=== PATIENT | male | born 1950 | race Caucasian/White ===

== ENCOUNTER → 2017-04-28 | Day surgery (SDC) | payer OTHER ==
[2017-04-27 12:38] VITALS: BMI 47.4
[~2017-04-28] MED LIST: ALBUTEROL SO4 18 GM HFA INHALER IH ONE; LIDOCAINE HCL/PF 2% SDV 5ML VIAL ONE; PROPOFOL 20 ML ONE
[2017-04-28 09:11] VITALS: TEMP 97.7
[2017-04-28 10:28] VITALS: PULSE 73
[2017-04-28 11:43] VITALS: BP 135/78
--- NOTE | 2017-05-01 16:37 | PATH ---
Surgical Pathology Report Patient Name: TEJA MITCHELL [facility]. Rec. #: [id number] /Age/Gender: 1950 (Age: 67) / M Account: [id number] Location: U-ENDOSCOPY Taken: 04/28/2017 Received: 04/28/2017 Reported: 05/01/2017 Physicians: Kashmir Sharp M.D. Specimen(s) Received BX RECTAL POLYP Clinical History Rectal bleeding Gastritis (atrophic), GERD, diverticulosis, polyp Final Diagnosis RECTUM, POLYP, BIOPSY: COLONIC MUCOSA WITH SUPERFICIAL HYPERPLASTIC FEATURES. Electronically Signed Kathleen Florez M.D. Gross Description Received in formalin, labeled "polyp rectum" is a rivera, irregular portion of soft tissue measuring 0.2 cm. in greatest dimension. The specimen is submitted in toto in one cassette. /04/28/201704/28/2017
== END | disposition home or self-care (01) ==
LOC: JASU-ENDO 08:10
PROVIDERS: ATTEND Internal Medicine Gastroenterology
PROC: 0DB38ZX Excision of Lower Esophagus, Via Natural or Artificial Opening Endoscopic, Diagnostic (ICD-10-PCS; 2017-04-28)
PROC: 0DBP8ZX Excision of Rectum, Via Natural or Artificial Opening Endoscopic, Diagnostic (ICD-10-PCS; principal; 2017-04-28 09:00)
DX: Z12.11 Encounter for screening for malignant neoplasm of colon (principal); R19.5 Other fecal abnormalities; K62.1 Rectal polyp; K64.8 Other hemorrhoids; K57.30 Diverticulosis of large intestine without perforation or abscess without bleeding; K21.0 Gastro-esophageal reflux disease with esophagitis
CPT/HCPCS: 88305-TC

== ENCOUNTER 2017-08-22 08:39 | Inpatient (IN) | payer OTHER ==
[2017-08-01 15:37] VITALS: BMI 45.6
--- NOTE | 2017-08-21 11:25 | HP ---
Satellite [facility] - Chief Complaint Chief Complaint: left knee pain - Past Medical History Allergies/Adverse Reactions: Allergies Allergy/AdvReac Type Severity Reaction Status Date / Time acetaminophen AdvReac jittery Verified 08/01/17 15:54 WOOD MOLD Allergy ITCHING, Uncoded 08/01/17 15:12 BLISTERING - Current Medications Current Medications: Home Medications Medication Instructions Recorded Albuterol Sulfate [Proair Hfa -] 1 - 2 inh PO QID PRN 08/20/12 Lisinopril [Prinivil] 5 mg PO DAILY 08/20/12 Escitalopram Oxalate [Lexapro -] 20 mg PO HS 08/18/13 Rosuvastatin Calcium [Crestor] 20 mg PO HS 08/17/15 Warfarin Na [Coumadin -] 5 mg PO Q2D 08/17/15 Warfarin Na [Coumadin -] 7.5 mg PO Q2D 08/17/15 Aspirin [ASA -] 81 mg PO DAILY 04/27/17 Clonazepam [Klonopin] 1 mg PO PRN 04/27/17 Metoprolol Tartrate 50 mg PO BID 08/01/17 Omeprazole 20 mg PO DAILY 08/01/17 Satellite Physical Exam - Physical Examination General Appearance: Well Nourished, Well Developed, Alert & Oriented x3 ENT: Clear Lung: Normal air movement Heart: Regular rate & rhythm Extremities: Other (left knee - + swelling, + ttp, decr rom, nvi xrays show grade 4 tricompartmental djd) Neurological: Intact, Alert, Oriented Satellite Impression/Plan - Impression/Plan Impression: left knee djd Operative Procedure: left basia tkr Date to be Performed: 08/22/17
[2017-08-22] MEDS ORDERED: CELECOXIB 200 MG CAPSULE PO ONE (09:08)
[2017-08-22] MEDS ORDERED: TRANEXAMIC ACID 1000 MG/10 ML VIAL IVPUSH ONE (09:08)
[2017-08-22] MEDS ORDERED: CEFAZOLIN 2 GM in DEXTROSE 5%-WATER - 50 ML IVPB ONE (09:08)
[2017-08-22] MEDS ORDERED: GABAPENTIN 300 MG CAPSULE (FP) PO ONE (09:08)
[2017-08-22] MEDS ORDERED: oxyCODONE HCL 10 MG SUSTAINED ACTING TABLET PO ONE (09:08)
[2017-08-22] MEDS ORDERED: VANCOMYCIN 1,000 MG VIAL (RESTRICTED TO ID ONLY) ONE (10:49)
[2017-08-22] MEDS ORDERED: ceFAZolin SODIUM 1 GM VIAL ONE ×2 (10:49→11:22)
[2017-08-22 10:51] LABS: INR 1.21 (0.82-1.09); PROTHROMBIN TIME (PATIENT) 13.7 SEC (9.98-11.88)
[2017-08-22] MEDS ORDERED: ROPIVACAINE HCL 0.5% 30ML VIAL ONE (11:09)
[2017-08-22] MEDS ORDERED: MIDAZOLAM HCL 2 MG/2 ML SINGLE DOSE VIAL ONE ×2 (11:09→11:21)
[2017-08-22] MEDS ORDERED: DEXAMETHASONE SOD PHOSPHATE/PF 10 MG/ML SDV ONE (11:09)
[2017-08-22] MEDS ORDERED: BUPIVACAINE LIPOSOME/PF (EXPAREL) 266 MG/20 ML VIAL ONE (11:09)
[2017-08-22] MEDS ORDERED: PROPOFOL 20 ML ONE ×2 (11:21→12:34)
[2017-08-22] MEDS ORDERED: ROCURONIUM BROMIDE 50 MG/5 ML VIAL ONE ×2 (11:21→13:05)
[2017-08-22] MEDS ORDERED: fentaNYL CITRATE 250 MCG/5 ML VIAL ONE (11:21)
[2017-08-22] MEDS ORDERED: LIDOCAINE HCL 2% JELLY (5 ML/TUBE) ONE (11:22)
[2017-08-22] MEDS ORDERED: DEXAMETHASONE SOD PHOSPHATE 4 MG/1 ML VIAL ONE (11:22)
[2017-08-22] MEDS ORDERED: ONDANSETRON 4 MG/2 ML VIAL ONE (11:22)
[2017-08-22] MEDS ORDERED: NEOSTIGMINE METHYLSULFATE 0.5 MG/ML - 10 ML MDV ONE (13:13)
[2017-08-22] MEDS ORDERED: GLYCOPYRROLATE 0.2 MG/1 ML VIAL ONE (13:13)
[2017-08-22] MEDS ORDERED: VANCOMYCIN 1,000 MG VIAL (RESTRICTED TO ID ONLY) IVPB ONE (13:26)
[2017-08-22] MEDS ORDERED: ALBUTEROL SO4 18 GM HFA INHALER IH PRN (14:02)
[2017-08-22] MEDS ORDERED: MAG HYDROX/AL HYDROX/SIMETH 30 ML UNIT-DOSE CUP PO PRN (14:04)
[2017-08-22] MEDS ORDERED: MAGNESIUM HYDROX 2400MG/30ML ORAL SUSPENSION 30 ML CUP PO PRN (14:04)
[2017-08-22] MEDS ORDERED: HYDROmorphone HCL/PF 1 MG/ML VIAL (FOR PYXIS CHARGING ONLY) ONE (14:10)
[2017-08-22] MEDS ORDERED: LACTATED RINGERS SOLUTION 1,000 ML IV SCH (14:15)
[2017-08-22] MEDS ORDERED: PATIENT'S OWN MEDICATION (NON-FORMULARY) (Clonazepam [Klonopin] 1 MG) PO SCH (14:15)
[2017-08-22] MEDS ORDERED: ONDANSETRON 4 MG/2 ML VIAL IVPUSH PRN (14:42)
[2017-08-22] MEDS ORDERED: oxyCODONE HCL 5 MG TABLET PO PRN (14:42)
[2017-08-22] MEDS ORDERED: ACETAMINOPHEN 325 MG TABLET (FP) PO SCH (14:45)
[2017-08-22] MEDS ORDERED: oxyCODONE HCL 5 MG TABLET PO ONE (15:01)
[2017-08-22] MEDS ORDERED: ONDANSETRON 4 MG/2 ML VIAL IVPUSH ONE (15:09)
[2017-08-22] MEDS: oxyCODONE HCL 5 MG TABLET PO PRN ×2 (16:56→20:30)
[2017-08-22] MEDS: CEFAZOLIN 2 GM/D5W 2 GM/50 ML ML IVPB SCH (20:29)
[2017-08-22] MEDS: oxyCODONE HCL 10 MG SUSTAINED ACTING TABLET PO SCH (21:24)
[2017-08-22] MEDS: ESCITALOPRAM OXALATE 20 MG TABLET (FP) PO SCH (21:24)
[2017-08-22] MEDS: METOPROLOL TARTRATE 50 MG TABLET (FP) PO SCH (21:24)
[2017-08-22] MEDS: GABAPENTIN 300 MG CAPSULE (FP) PO SCH (21:24)
[2017-08-22] MEDS: ROSUVASTATIN CA 20 MG TABLET (FP) PO SCH (21:24)
[2017-08-22] MEDS: SENNOSIDES/DOCUSATE COMBO (SENNA PLUS) TABLET (UD) PO SCH (21:25)
[2017-08-22] MEDS ORDERED: KETOROLAC TROMETHAMINE 30 MG/1 ML VIAL IVPUSH ONE (23:15)
[2017-08-23] MEDS: oxyCODONE HCL 5 MG TABLET PO PRN ×4 (02:56→13:56)
[2017-08-23] MEDS: CEFAZOLIN 2 GM/D5W 2 GM/50 ML ML IVPB SCH (04:35)
[2017-08-23 08:51] LABS: HEMATOCRIT 24.9 % (35.4-49); HEMOGLOBIN 8.1 GM/dl (11.7-16.9); MCH 25.5 pg (25.7-33.7); MCHC 32.5 g/dl (32.0-35.9); MEAN CELL VOLUME 78.4 fl (80-96); MEAN PLT VOLUME 8.8 fl (7.5-11.1); PLATELET COUNT 367 K/MM3 (134-434); RBC 3.17 M/mm3 (4.00-5.60); RDW 15.9 % (11.9-15.9); WHITE BLOOD COUNT 12.5 K/mm3 (4.0-10.8)
--- NOTE | 2017-08-23 09:40 | PN ---
Progress Note (short form) - Note Progress Note: 67M POD1 s/p L TKR under spinal anesthetic with peripheral nerve blocks for post operative pain relief. Pt states that pain is well controlled and reports no anesthetic complications. AVSS. Sensory and motor function intact in bilateral lower extremities. Continue current regimen.
[2017-08-23] MEDS ORDERED: PT OWN MED DRAWER 7, Y5N ONE (09:47)
[2017-08-23] MEDS: ASPIRIN 81 MG CHEWABLE TABLETS PO SCH (09:51)
[2017-08-23] MEDS: oxyCODONE HCL 10 MG SUSTAINED ACTING TABLET PO SCH ×2 (09:51→21:28)
[2017-08-23] MEDS: METOPROLOL TARTRATE 50 MG TABLET (FP) PO SCH ×2 (09:58→21:29)
[2017-08-23] MEDS: GABAPENTIN 300 MG CAPSULE (FP) PO SCH ×2 (09:58→21:29)
[2017-08-23] MEDS: PANTOPRAZOLE 20 MG TABLET (FP) PO SCH (09:59)
[2017-08-23] MEDS: SENNOSIDES/DOCUSATE COMBO (SENNA PLUS) TABLET (UD) PO SCH ×2 (09:59→21:29)
[2017-08-23] MEDS: LISINOPRIL 5 MG TABLET (FP) PO SCH (09:59)
[2017-08-23] MEDS: MULTIVITAMINS (DAILY MVI) TABLET (FP) PO SCH (10:00)
[2017-08-23] MEDS ORDERED: PATIENT'S OWN MEDICATION (NON-FORMULARY) (Omeprazole [Omeprazole] 20 MG) PO SCH (10:00)
[2017-08-23] MEDS: ENOXAPARIN NA (PORCINE) 120 MG/0.8 ML DISP.SYRIN SQ SCH ×2 (10:00→21:30)
[2017-08-23] MEDS ORDERED: KETOROLAC TROMETHAMINE 30 MG/1 ML VIAL IM PRN (21:06)
[2017-08-23] MEDS: ROSUVASTATIN CA 20 MG TABLET (FP) PO SCH (21:28)
[2017-08-23] MEDS: ESCITALOPRAM OXALATE 20 MG TABLET (FP) PO SCH (21:29)
[2017-08-24] MEDS: oxyCODONE HCL 5 MG TABLET PO PRN ×3 (06:33→16:35)
[2017-08-24 08:00] LABS: HEMATOCRIT 24.8 % (35.4-49); HEMOGLOBIN 7.9 GM/dl (11.7-16.9); MCH 25.1 pg (25.7-33.7); MCHC 31.9 g/dl (32.0-35.9); MEAN CELL VOLUME 78.9 fl (80-96); MEAN PLT VOLUME 8.4 fl (7.5-11.1); PLATELET COUNT 342 K/MM3 (134-434); RBC 3.15 M/mm3 (4.00-5.60); RDW 16.2 % (11.9-15.9); WHITE BLOOD COUNT 12.5 K/mm3 (4.0-10.8)
--- NOTE | 2017-08-24 08:28 | PN ---
Progress Note (short form) - Note Progress Note: Ortho Pt seen and examined s/p left basia tkr pod #2 Selected Entries 08/24/17 04:00 Temperature 98.3 F Pulse Rate 75 Respiratory 20 Rate Blood Pressure 127/59 Laboratory Tests 08/23/17 07:50 WBC 12.5 H D Hgb 8.1 L D Hct 24.9 L D Plt Count 367 D dressing c/d/i, calf soft, nt rom 0-30, nvi a/p monitor h/h PT dvt ppx pain control d/c home tomorrow if stable
[2017-08-24] MEDS ORDERED: PT OWN MED DRAWER 7, Y5N ONE ×2 (10:48→21:24)
[2017-08-24] MEDS: ASPIRIN 81 MG CHEWABLE TABLETS PO SCH (10:49)
[2017-08-24] MEDS: METOPROLOL TARTRATE 50 MG TABLET (FP) PO SCH ×2 (10:49→21:39)
[2017-08-24] MEDS: GABAPENTIN 300 MG CAPSULE (FP) PO SCH ×2 (10:50→21:40)
[2017-08-24] MEDS: SENNOSIDES/DOCUSATE COMBO (SENNA PLUS) TABLET (UD) PO SCH ×2 (10:50→21:38)
[2017-08-24] MEDS: oxyCODONE HCL 10 MG SUSTAINED ACTING TABLET PO SCH ×2 (10:50→21:38)
[2017-08-24] MEDS: LISINOPRIL 5 MG TABLET (FP) PO SCH (10:50)
[2017-08-24] MEDS: MULTIVITAMINS (DAILY MVI) TABLET (FP) PO SCH (10:50)
[2017-08-24] MEDS: ENOXAPARIN NA (PORCINE) 120 MG/0.8 ML DISP.SYRIN SQ SCH ×2 (10:51→21:40)
[2017-08-24] MEDS: PANTOPRAZOLE 20 MG TABLET (FP) PO SCH (10:52)
--- NOTE | 2017-08-24 15:51 | OP ---
DATE OF OPERATION: 08/22/2017 PREOPERATIVE DIAGNOSIS: Degenerative joint disease, left knee. POSTOPERATIVE DIAGNOSIS: Degenerative joint disease, left knee. PROCEDURE: Left total knee replacement with robotic-assisted navigation (MAKOplasty). SURGICAL ATTENDING: Etienne Jeffers MD SPORTS MEDICINE TRAINER: MARLON Olmstead ANESTHESIA: Regional and spinal. CLOSURE: A Triathlon knee system with a 4 femur, a 5 tibia, a 9 polyethylene TS implant, and a 35 patella, 1 Corkscrew anchor for patellar tendon, 0 Vicryl for fascia, 2-0 for subcutaneous, 3-0 Monocryl subcuticular with skin glue for skin, and 4-0 undyed Vicryl for pin sites. ESTIMATED BLOOD LOSS: Approximately 150 mL. COMPLICATIONS: None. CONDITION: To recovery room in stable condition. DESCRIPTION OF OPERATIVE PROCEDURE: Patient was taken to the operating room on August 22, 2017. Spinal and regional anesthesia were administered by the anesthesiologist. IV Kefzol and TXA were administered prophylactically prior to the case. The left lower extremity was prepped and draped in the usual sterile fashion. We utilized his previous incision from his IM skip of his tibia to do the total knee replacement. He had a curved incision from mid-patella on the medial side, angling towards the tibial tubercle. We used that incision and extended it proximally and more laterally into the midline for this procedure. Flaps were made medially and laterally to perform the procedure. Medial parapatellar arthrotomy was then made. The patella was flexed, and the knee was flexed up. Some periosteal dissection was done on the anterior, medial, proximal tibia until the knee was able to be brought forward. During the dissection, part of the patella tendon was avulsing from the tibial tubercle. We held it in place with a tack during the procedure. The meniscal remnants, the ACL, and PCL were excised. Two pins were placed in the proximal aspect of the incision anterior to posterior, through the anterior cortex, and engaging but not through the posterior cortex. Two were placed through small stab incisions a handbreadth below the tibial tubercle, again gaining one cortex and not the second. We had to go around the skip as the patient had a skip in his tibia already. To these pins were attached the navigation arrays. The knee was then registered with the navigation device. Excellent registration was obtained and was confirmed by "popping the bubbles." Osteophytes were then removed from around the knee. The knee was then tested in varus/valgus stress in both extension and 90 degrees of flexion to obtain equal balancing. The virtual position of the components was optimized to optimize the balancing of the knee. The robot was then brought into the field, and the cuts were made on both the femur and the tibia as to the specifications. Trial reduction with a 4 femur, a 5 tibia, a 9 polyethylene achieved full extension and full flexion with equal balancing and tension to varus/valgus stress throughout. This was confirmed by the navigation device as well. The patella was then calibrated for thickness and then osteotomized down to the appropriate level. A trial 35 patella button was applied. The knee went through a range of motion, full extension, full flexion with excellent tracking of the patella and excellent stability throughout. The trial components were removed, the keel was punched and drilled and was not in the way of the tibial skip that was previously placed so that was left in situ. The real components were then cemented in using modern generation cement techniques and the antibiotic cement and pressurization. After the cement was hardened, the knee was thoroughly inspected to remove all excess cement. Trial number 9 TS implant was then used and clipped into place. Range of motion and stability were as described earlier. The knee was thoroughly irrigated with antibiotic . Vancomycin powder was then placed into the knee joint. Medial parapatellar arthrotomy was then closed using number 1 Vicryl suture. A 5.5 Corkscrew anchor with FiberWire was used to augment the patella tendon insertion into the tibial tubercle as part of it was avulsed. The main body, though, was still in situ but the Corkscrew was able to fixate the remainder. The knee was again taken through a range of motion, found to go full extension, full flexion with excellent tracking of the patella and no undue tension on the repair. The subcutaneous was closed in layers with 0 and 2-0 Vicryl and 3-0 Monocryl subcuticular, skin glue for the skin, 4-0 undyed Vicryl for pin sites. A sterile Aquacel dressing followed by a Feldman dressing was applied. The patient was awakened from anesthesia and transferred to recovery room in stable condition. No complications. The estimated blood loss negligible. Tourniquet was used in this case at 300 mmHg. Ferdinand CESAR/[id number]
[2017-08-24] MEDS: ROSUVASTATIN CA 20 MG TABLET (FP) PO SCH (21:39)
[2017-08-24] MEDS: ESCITALOPRAM OXALATE 20 MG TABLET (FP) PO SCH (21:40)
[2017-08-25] MEDS: oxyCODONE HCL 5 MG TABLET PO PRN ×3 (03:42→14:32)
--- NOTE | 2017-08-25 07:52 | PN ---
Progress Note (short form) - Note Progress Note: Ortho Pt seen and examined s/p left basia tkr pod #3 Selected Entries 08/25/17 06:00 Temperature 98.5 F Pulse Rate 57 L Respiratory 18 Rate Blood Pressure 113/60 Laboratory Tests 08/24/17 07:08 WBC 12.5 H Hgb 7.9 L Hct 24.8 L Plt Count 342 dressing c/d/i, calf soft, nt rom 0-30, nvi a/p monitor h/h PT dvt ppx pain control d/c home today f/u in 1 week
--- NOTE | 2017-08-25 09:44 | PN ---
Progress Note, Physician History of Present Illness: 67 yo h/o s/p bioAVR, CAD, diastolic dysfunction, PAF post cryoMaze on coumadin per INR, HTH/HCVD, chol, OSAS seen by Dr. Jim 07/24/2017 for pre- op CV evaluation. s/p left basia tkr pod #3 without sequelae. - Current Medication List Current Medications: Active Medications Al Hydroxide/Mg Hydroxide (Mylanta Oral Suspension -) 30 ml PO Q4H PRN PRN Reason: DYSPEPSIA Albuterol Sulfate (Ventolin Hfa Inhaler -) 1 - 2 puff IH QID PRN PRN Reason: SHORT OF BREATH/WHEEZING Aspirin (Asa -) 81 mg PO DAILY [facility] Last Admin: 08/24/17 10:49 Dose: 81 mg Enoxaparin Sodium (Lovenox -) 120 mg SQ BID [facility] Last Admin: 08/24/17 21:40 Dose: 120 mg Escitalopram Oxalate (Lexapro -) 20 mg PO HS [facility] Last Admin: 08/24/17 21:40 Dose: 20 mg Gabapentin (Neurontin -) 300 mg PO BID [facility] Last Admin: 08/24/17 21:40 Dose: 300 mg Ketorolac Tromethamine (Toradol Injection -) 30 mg IM Q6H PRN PRN Reason: PAIN LEVEL 4 - 6 Stop: 08/28/17 21:05 Last Admin: 08/23/17 21:20 Dose: 30 mg Lisinopril (Prinivil) 5 mg PO DAILY [facility] Last Admin: 08/24/17 10:50 Dose: 5 mg Magnesium Hydroxide (Milk Of Magnesia -) 30 ml PO PRN PRN PRN Reason: CONSTIPATION Metoprolol Tartrate (Lopressor -) 50 mg PO BID [facility] Last Admin: 08/24/17 21:39 Dose: 50 mg Multivitamins/Minerals/Vitamin C (Tab-A-Vit -) 1 tab PO DAILY [facility] Last Admin: 08/24/17 10:50 Dose: 1 tab Non-Formulary Medication (Clonazepam [Klonopin]) 1 mg PO PRN [facility] Ondansetron HCl (Zofran Injection) 4 mg IVPUSH Q6H PRN PRN Reason: NAUSEA AND/OR VOMITING Oxycodone HCl (Roxicodone -) 5 mg PO Q3H PRN PRN Reason: PAIN LEVEL 1-3 Oxycodone HCl (Roxicodone -) 10 mg PO Q3H PRN PRN Reason: PAIN LEVEL 7-10 Last Admin: 08/25/17 03:42 Dose: 10 mg Oxycodone HCl (Oxycontin -) 10 mg PO BID [facility] Stop: 08/25/17 14:43 Last Admin: 08/24/17 21:38 Dose: 10 mg Pantoprazole Sodium (Protonix -) 20 mg PO DAILY [facility] Last Admin: 08/24/17 10:52 Dose: 20 mg Rosuvastatin Calcium (Crestor -) 20 mg PO HS [facility] Last Admin: 08/24/17 21:39 Dose: 20 mg Senna/Docusate Sodium (Pericolace -) 2 tablet PO BID [facility] Last Admin: 08/24/17 21:38 Dose: 2 tablet - Objective Vital Signs: Vital Signs Temperature 98.5 F 08/25/17 06:00 Pulse Rate 57 L 08/25/17 06:00 Respiratory Rate 18 08/25/17 06:00 Blood Pressure 113/60 08/25/17 06:00 O2 Sat by Pulse Oximetry (%) 96 08/25/17 08:37 Constitutional: Yes: No Distress, Calm Neck: Yes: Supple Cardiovascular: Yes: Regular Rate and Rhythm, Murmur (1/6 SM) Respiratory: Yes: Regular, CTA Bilaterally Edema: Yes Labs: CBC, BMP 08/24/17 07:08 INR, PTT INR 1.21 (0.82-1.09) H D 08/22/17 09:20 - ....Imaging EKG: Report Reviewed (SR @ [address] [place] [address]) Problem List - Problems (1) Status post aortic valve replacement with bioprosthetic valve Code(s): Z95.3 - PRESENCE OF XENOGENIC HEART VALVE (2) Paroxysmal atrial fibrillation Code(s): I48.0 - PAROXYSMAL ATRIAL FIBRILLATION (3) Status post ablation of atrial fibrillation Code(s): Z98.890 - OTHER SPECIFIED POSTPROCEDURAL STATES; Z86.79 - PERSONAL HISTORY OF OTHER DISEASES OF THE CIRCULATORY SYSTEM (4) Hyperlipidemia Code(s): E78.5 - HYPERLIPIDEMIA, UNSPECIFIED Qualifiers: Hyperlipidemia type: pure hypercholesterolemia Qualified Code(s): E78.00 - Pure hypercholesterolemia, unspecified; E78.0 - Pure hypercholesterolemia (5) Hypertensive cardiomyopathy Code(s): I11.9 - HYPERTENSIVE HEART DISEASE WITHOUT HEART FAILURE; I43 - CARDIOMYOPATHY IN DISEASES CLASSIFIED ELSEWHERE Qualifiers: Heart failure presence: without heart failure Qualified Code(s): I11.9 - Hypertensive heart disease without heart failure; I43 - Cardiomyopathy in diseases classified elsewhere; I43 - Cardiomyopathy in diseases classified elsewhere; I43 - Cardiomyopathy in diseases classified elsewhere; I43 - Cardiomyopathy in diseases classified elsewhere (6) Diastolic dysfunction Code(s): I51.9 - HEART DISEASE, UNSPECIFIED (7) Coronary artery disease Code(s): I25.10 - ATHSCL HEART DISEASE OF CIRCLE CORONARY ARTERY W/O ANG PCTRS Qualifiers: Coronary Disease-Associated Artery/Lesion type: [place] artery [place] vs. transplanted heart: [place] heart Associated angina: without angina Qualified Code(s): I25.10 - Atherosclerotic heart disease of [place] coronary artery without angina pectoris (8) Anemia Code(s): D64.9 - ANEMIA, UNSPECIFIED Qualifiers: Anemia type: unspecified type Qualified Code(s): D64.9 - Anemia, unspecified (9) Chronic anticoagulation Code(s): Z79.01 - SENIOR LIVING (CURRENT) USE OF ANTICOAGULANTS Assessment/Plan 11/05/2015 Echo: cLVH, normal LV size and fxn, mild LAE, bioAVR, mild MR, TR 1. s/p Basia left knee TKR POD #3 2. s/p bioAVR 3. 1 vessel CAD, angina pectoris 4. Diastolic dysfunction 5. PAF->SR post CryoMaze [id number] subtherapeutic INR 6. HTN/HCVD 7. Hyperlipidemia 8. OSAS 9. Anemia P:1. Transition Lovenox-> coumadin per INR 2-3 2. Continue ASA 81 qd, lisinopril 5 qd, Lopressor 50 bid, decrease Crestor 10 qhs, resume Lasix 20 qod at home 3. F/u with Dr. Jim as outpatient 4. Analgesia as needed, thank you for consultative opportunity
[2017-08-25] MEDS ORDERED: PT OWN MED DRAWER 7, Y5N ONE (09:54)
[2017-08-25] MEDS: ASPIRIN 81 MG CHEWABLE TABLETS PO SCH (10:01)
[2017-08-25] MEDS: oxyCODONE HCL 10 MG SUSTAINED ACTING TABLET PO SCH (10:01)
[2017-08-25] MEDS: LISINOPRIL 5 MG TABLET (FP) PO SCH (10:01)
[2017-08-25] MEDS: ENOXAPARIN NA (PORCINE) 120 MG/0.8 ML DISP.SYRIN SQ SCH (10:01)
[2017-08-25] MEDS: METOPROLOL TARTRATE 50 MG TABLET (FP) PO SCH (10:01)
[2017-08-25] MEDS: SENNOSIDES/DOCUSATE COMBO (SENNA PLUS) TABLET (UD) PO SCH (10:01)
[2017-08-25] MEDS: PANTOPRAZOLE 20 MG TABLET (FP) PO SCH (10:01)
[2017-08-25] MEDS: MULTIVITAMINS (DAILY MVI) TABLET (FP) PO SCH (10:01)
[2017-08-25] MEDS: GABAPENTIN 300 MG CAPSULE (FP) PO SCH (10:01)
--- NOTE | 2017-08-25 12:23 | PATH ---
Surgical Pathology Report Patient Name: TEJA MITCHELL Med. Rec. #: [id number] /Age/Gender: 1950 (Age: 67) / M Account: [id number] Location: [facility] MED-SURG Taken: 08/22/2017 Received: 08/22/2017 Reported: 08/25/2017 Physicians: Etienne Jeffers M.D. Specimen(s) Received LEFT KNEE BONES Clinical History Osteoarthritis left knee Final Diagnosis BONE AND SOFT TISSUE, LEFT KNEE, REPLACEMENT: DEGENERATIVE JOINT DISEASE. Electronically Signed Carloz Garcia M.D. Gross Description Received in formalin labeled "left knee bones," is a 12.0 x 9.5 x 2.0 cm aggregate of multiple rivera, irregular portions of bone and soft tissue. The tibial plateau measures 7.5 x 5.2 x 1.6 cm. The articular surfaces are rivera-yellow and diffusely granular. No areas of eburnation are identified. The underlying trabecular bone is yellow and hard. Coining Press Operator sections are submitted in one cassette, following decalcification. 08/24/201708/24/2017
[2017-08-25 14:10] VITALS: BP 120/49; PULSE 72; TEMP 99.4
[2017-08-25] MEDS ORDERED: WARFARIN NA 7.5 MG TABLET (FP) PO ONE (18:00)
[2017-08-25] MEDS ORDERED: ROSUVASTATIN CA 10 MG TABLET (FP) PO SCH (22:00)
== END 2017-08-25 17:20 | disposition home health service (06) | DRG 470 ==
LOC: FM/S 08:39
PROVIDERS: ADMIT Orthopaedic Surgery; ATTEND Orthopaedic Surgery
PROC: 8E0YXCZ Robotic Assisted Procedure of Lower Extremity (ICD-10-PCS; 2017-08-22)
PROC: 0SRD069 Replacement of Left Knee Joint with Oxidized Zirconium on Polyethylene Synthetic Substitute, Cemented, Open Approach (ICD-10-PCS; principal; 2017-08-22 11:00)
DX: M17.12 Unilateral primary osteoarthritis, left knee (principal); E78.5 Hyperlipidemia, unspecified; I11.9 Hypertensive heart disease without heart failure; Z95.3 Presence of xenogenic heart valve; I48.0 Paroxysmal atrial fibrillation; I25.119 Atherosclerotic heart disease of native coronary artery with unspecified angina pectoris; D64.9 Anemia, unspecified; G47.33 Obstructive sleep apnea (adult) (pediatric); Z79.01 Long term (current) use of anticoagulants
CPT/HCPCS: 36415; 73560-TC-LT-FY; 85027; 85610; 88304-TC; 88311-TC; 94010; 94760; 97116-GP; 97162-GP

== ENCOUNTER 2018-01-11 12:44 | Inpatient (IN) | payer OTHER ==
--- NOTE | 2018-01-11 13:00 | PDOC ---
History of Present Illness - General Chief Complaint: Revisit, Lab Variance Stated Complaint: BLOOD TRANSFUSION (PCP SENT) Time Seen by Provider: 01/11/18 12:59 - History of Present Illness Initial Comments: The patient is a 67M who was sent from clinic for a blood transfusion. Hgb at clinic was 6.2. The patient reports that he recently has been feeling more fatigued, and easily winded during physical therapy. He endorses recent increased, though intermittent, sensations of palpitations. He also states that those around him have been telling him that he's more pale. He denies RIVERA, dizziness, chest pain, abdominal pain, blood in his stool or urine. He endorses a recent colonoscopy where they found an ulcer, but he had taken lovenox that day and so it was no biopsied. He was recently seen by his orthopedic surgeon, Dr. Jeffers, who evaluated his BLE edema/swelling and noted that it had improved recently compared to normal and was not concerned to bleeding into his lower extremity compartments. 01/11/18 13:00 Timing/Duration: unsure Past History - Past Medical History Allergies/Adverse Reactions: Allergies Allergy/AdvReac Type Severity Reaction Status Date / Time acetaminophen AdvReac jittery Verified 08/01/17 15:54 WOOD MOLD Allergy ITCHING, Uncoded 08/01/17 15:12 BLISTERING Home Medications: Ambulatory Orders Albuterol Sulfate [Proair Hfa -] 1 - 2 inh PO QID PRN 08/20/12 Lisinopril [Prinivil] 5 mg PO DAILY 08/20/12 Escitalopram Oxalate [Lexapro -] 20 mg PO HS 08/18/13 Rosuvastatin Calcium [Crestor] 20 mg PO HS 08/17/15 Aspirin [ASA -] 81 mg PO DAILY 04/27/17 Clonazepam [Klonopin] 1 mg PO DAILY 04/27/17 Metoprolol Tartrate 50 mg PO BID 08/01/17 Omeprazole 20 mg PO DAILY 08/01/17 Oxycodone HCl 10 mg PO ASDIR PRN 08/22/17 Gabapentin [Neurontin -] 300 mg PO BID #60 capsule 08/25/17 Warfarin Na [Coumadin Protocol] 1 each PO ASDIR 01/11/18 Anemia: No Asthma: No Cancer: No Cardiac Disorders: Yes (A FIB, MVP) CVA: No COPD: No CHF: No Dementia: No Diabetes: No GI Disorders: Yes (HIATAL HERNIA, NERD, HERMORRHOIDS, DIVERTICULOSIS) Disorders: Yes (enlarged prostate) HTN: Yes Hypercholesterolemia: No (on Crestor s/p OPEN HEART SURGERY) Liver Disease: No Seizures: No Thyroid Disease: No - Surgical History Abdominal Surgery: No Appendectomy: No Cardiac Surgery: Yes (BOVINE AVR CARD CATH TIMES TWO- BOTH OK) Cholecystectomy: No Lung Surgery: No Neurologic Surgery: No Orthopedic Surgery: Yes (VIDHYA ARTHOSCOPY KNEE, RIGHT CARPAL TUNNEL, RIGHT TKR) - Immunization History Immunization Up to Date: Yes - Suicide/Smoking/Psychosocial Hx Smoking History: Former smoker Have you smoked in the past 12 months: No If you are a former smoker, when did you quit?: 1993 Information on smoking cessation initiated: No 'Breaking Loose' booklet given: 08/18/13 Hx Alcohol Use: No Drug/Substance Use Hx: No Substance Use Type: None Hx Substance Use Treatment: No Review of Systems - Review of Systems Comments:: GENERAL/CONSTITUTIONAL: No fever or chills. HEAD, EYES, EARS, NOSE AND THROAT: No change in vision. No ear pain or discharge. No sore throat. CARDIOVASCULAR: Endorses chronic BLE swelling and a-fib, No chest pain RESPIRATORY: No cough, wheezing, or hemoptysis. GASTROINTESTINAL: No nausea, vomiting, diarrhea or constipation. Denies blood in stool GENITOURINARY: No dysuria, frequency, or change in urination. MUSCULOSKELETAL: No new joint or muscle or pain. No neck or back pain. SKIN: BLE chronic vascular skin changes NEUROLOGIC: No headache, vertigo, loss of consciousness, or change in strength/ sensation. ENDOCRINE: No increased thirst. No abnormal weight change HEMATOLOGIC/LYMPHATIC: No easy bleeding, or history of blood clots ALLERGIC/IMMUNOLOGIC: No hives or skin allergy. 01/11/18 13:43 *Physical Exam - Vital Signs Last Vital Signs Temp Pulse Resp BP Pulse Ox 97.5 F L 72 20 155/66 96 01/11/18 12:49 01/11/18 12:49 01/11/18 12:49 01/11/18 12:49 01/11/18 12:49 - Physical Exam Comments: GENERAL: Awake, alert, and fully oriented, in no acute distress HEAD: No signs of trauma, normocephalic, atraumatic EYES: PERRLA, EOMI, sclera anicteric, conjunctiva clear ENT: Auricles normal inspection, hearing grossly normal, nares patent, oropharynx clear without exudates. Moist mucosa NECK: Normal ROM, supple, no lymphadenopathy LUNGS: No distress, speaks full sentences, clear to auscultation bilaterally HEART: Sinus rhythm, regular rate with a systolic murmur, peripheral pulses 2+ and equal bilaterally. ABDOMEN: Soft, protuberant, nontender, normoactive bowel sounds. No guarding, no rebound. No masses EXTREMITIES : BLE edema/swelling. Normal range of motion. No clubbing or cyanosis. NEUROLOGICAL: Cranial nerves II through XII grossly intact. Normal speech, no focal sensorimotor deficits SKIN: Pale, Warm, Dry, normal turgor,; BLE vascular skin changes 01/11/18 13:45 ED Treatment Course - LABORATORY CBC & Chemistry Diagram: 01/12/18 06:30 01/12/18 06:30 Medical Decision Making - Medical Decision Making The patient is a 67M with a history of a-fib (Warfarin), AVR (bovine), and obesity who presents from clinic for evaluation of anemia (Hgb 6.2). DDx: Acute blood loss anemia/symptomatic anemia, anemia of chronic disease, less likely traumatic blood loss ED Course CMP, CBC, T/S, PTT/INR/PT, CXR, ECG Plan for transfusion and admission for symptomatic anemia Hgb 6.3, will transfuse 2u pRBC Dispo: Admit for transfusion and evaluation of symptomatic anemia 01/11/18 13:47 *DC/Admit/Observation/Transfer Diagnosis at time of Disposition: Symptomatic anemia - Discharge Dispostion Condition at time of disposition: Guarded Decision to Admit order: Yes - Referrals - Patient Instructions - Post Discharge Activity
[2018-01-11 13:56] LABS: MEAN CELL VOLUME 60.6 fl (80-96)
[2018-01-11 14:07] LABS: INR 2.6 (0.82-1.09); PROTHROMBIN TIME (PATIENT) 29.4 SEC (9.7-13.0)
[2018-01-11 14:10] LABS: ACTIVATED PTT 36.1 SECONDS (25.2-36.5)
--- NOTE | 2018-01-11 14:12 | PDOC ---
Attending Attestation - Resident Resident Name: Mil Johnson - ED Attending Attestation I have performed the following: I have examined & evaluated the patient, The case was reviewed & discussed with the resident, I agree w/resident's findings & plan, Exceptions are as noted - HPI HPI: 01/11/18 14:10 67y M hx of afib (on coumadin), s/p AoV replacement sent by clinic for evaluation of anemic, was noted to be anemic down to 10->8->6 (over the past few months), had a an ulcer diagnosed using endoscopy. Pt endorses some CHONG, generalized weakness, was noted to be more pale than usual. denies any cp, abd pain, active bleeding, diarrhea, melena, bpr. GENERAL: The patient is awake, alert, and fully oriented, Nontoxic - in no acute distress. HEAD: Normocephalic, atraumatic. EYES: extraocular movements intact, sclera anicteric, pale conjunctiva ENT: Normal voice, Moist mucous membranes. NECK: Normal range of motion, supple LUNGS: Breath sounds equal, clear to auscultation bilaterally. No wheezes, no rhonchi, no rales. HEART: Regular rate and rhythm, normal S1 and S2 without murmur, rub or gallop. ABDOMEN: Soft, nontender, normoactive bowel sounds. No guarding, no rebound. . No CVA tenderness EXTREMITIES: Normal range of motion, +2 pitting edema. NEUROLOGICAL: No facial assymetry, Normal speech, PSYCH: Normal mood, normal affect. SKIN: Warm, Dry, normal turgor, will likely need t admit pt for symptomatic anemia and workup for cuase of anemia the patient s/p endscopy in jun PMD: Maya Sharp - Physicial Exam PE: 01/12/18 14:47 see above - Medical Decision Making pts hbg at 6 will treansfuse with 2u of prbc will admit for further managment for cause of anemia and for the transfusion itself
[2018-01-11 14:14] LABS: ANION GAP 9 (8-16); BLOOD UREA NITROGEN 22 mg/dL (7-18); CALCIUM 8.5 mg/dL (8.5-10.1); CHLORIDE 103 mmol/L (98-107); CO2 26 mmol/L (21-32); CREATININE 1.1 mg/dL (0.7-1.3); GLUCOSE,RANDOM 112 mg/dL (74-106); POTASSIUM 4.3 mmol/L (3.5-5.1); SODIUM 138 mmol/L (136-145)
[2018-01-11 14:16] LABS: MCHC 28.6 g/dl (32.0-35.9); MEAN PLT VOLUME 9.1 fl (7.5-11.1); PLATELET COUNT 329 K/MM3 (134-434); RBC 3.62 M/mm3 (4.00-5.60); RDW 20.7 % (11.9-15.9); WHITE BLOOD COUNT 7.2 K/mm3 (4.0-10.0)
[2018-01-11 14:17] LABS: HEMOGLOBIN 6.3 GM/dL (11.7-16.9); MCH 17.4 pg (25.7-33.7)
[2018-01-11] MEDS ORDERED: ONDANSETRON 4 MG/2 ML VIAL IVPUSH PRN (15:40)
[2018-01-11] MEDS ORDERED: ACETAMINOPHEN 325 MG TABLET (FP) PO PRN (15:40)
--- NOTE | 2018-01-11 15:49 | HP ---
Admitting History and Physical - Primary Care Physician PCP: Jeromy Treoj - Admission Chief Complaint: I feel tired History of Present Illness: Mr Lee is a very pleasant 67 year old male who comes in complaining of feeling tired and people say he is looking pale. He says he recently had knee surgery and has been attending PT. He noticed that he was getting tired faster but attributed to old age. He presented to the orthopedic surgeon and his cbc was checked and it was low. Because of that he came into the hospital for further evaluation. Aside from feeling tired he is without complaint. He denies fevers, chills, lightheadedness, dizziness, passing out, chest pain or pressure , shortness of breath, nausea, vomiting, diarrhea, constipation, melena, hematochezia, difficulty or pain on urination, or worsening swelling. He had multiple leg surgeries and says his legs are chronically swollen and this is the best they've looked. History Source: Patient Limitations to Obtaining History: No Limitations - Past Medical History Cardiovascular: Yes: AFIB, HTN, Hyperlipdemia Pulmonary: Yes: COPD - Past Surgical History Past Surgical History: Yes: Joint Replacement (L TKA), Valve Replacement - Smoking History Smoking history: Former smoker Have you smoked in the past 12 months: No If you are a former smoker, when did you quit?: 1993 - Alcohol/Substance Use Hx Alcohol Use: No - Social History Usual Living Arrangement: Yes: With Spouse ADL: Family Assistance History of Recent Travel: No Home Medications - Allergies Allergies/Adverse Reactions: Allergies Allergy/AdvReac Type Severity Reaction Status Date / Time acetaminophen AdvReac jittery Verified 08/01/17 15:54 WOOD MOLD Allergy ITCHING, Uncoded 08/01/17 15:12 BLISTERING - Home Medications Home Medications: Ambulatory Orders Albuterol Sulfate [Proair Hfa -] 1 - 2 inh PO QID PRN 08/20/12 Lisinopril [Prinivil] 5 mg PO DAILY 08/20/12 Escitalopram Oxalate [Lexapro -] 20 mg PO HS 08/18/13 Rosuvastatin Calcium [Crestor] 20 mg PO HS 08/17/15 Aspirin [ASA -] 81 mg PO DAILY 04/27/17 Clonazepam [Klonopin] 1 mg PO DAILY 04/27/17 Metoprolol Tartrate 50 mg PO BID 08/01/17 Omeprazole 20 mg PO DAILY 08/01/17 Oxycodone HCl 10 mg PO ASDIR PRN 08/22/17 Gabapentin [Neurontin -] 300 mg PO BID #60 capsule 08/25/17 Warfarin Na [Coumadin Protocol] 1 each PO ASDIR 01/11/18 Family Disease History - Family Disease History Family Disease History: Heart Disease: Father, Mother, [place]: Father Review of Systems Findings/Remarks: Full review of systems obtained, as per HPI and otherwise negative Physical Examination Vital Signs: Vital Signs Temperature 36.4 C L 01/11/18 12:49 Pulse Rate 81 01/11/18 15:27 Respiratory Rate 22 01/11/18 15:27 Blood Pressure 116/56 01/11/18 15:27 O2 Sat by Pulse Oximetry (%) 96 01/11/18 15:27 Constitutional: Yes: Well Nourished, No Distress, Calm, Pallor Eyes: Yes: Conjunctiva Clear, EOM Intact, PERRL Cardiovascular: Yes: Regular Rate and Rhythm. No: Gallop, Murmur, Rub Respiratory: Yes: Regular, CTA Bilaterally. No: Rales, Rhonchi, Wheezes Gastrointestinal: Yes: Normal Bowel Sounds, Soft. No: Distention, Tenderness Edema: Yes Edema: LLE: 1+, RLE: Trace Labs: CBC, BMP 01/11/18 13:45 01/11/18 13:45 Imaging - Results Chest X-ray: Report Reviewed, Image Reviewed Problem List - Problems (1) Symptomatic anemia Assessment/Plan: -unclear cause -no overt signs of bleeding -stool sample negative for blood -recent colonoscopy -admit to the hospital -transfuse 2 units -check anemia labs -consult GI and hematology -hold coumadin currently Code(s): D64.9 - ANEMIA, UNSPECIFIED (2) Hyperlipidemia Assessment/Plan: -continue statin Code(s): E78.5 - HYPERLIPIDEMIA, UNSPECIFIED Qualifiers: Hyperlipidemia type: pure hypercholesterolemia Qualified Code(s): E78.00 - Pure hypercholesterolemia, unspecified; E78.0 - Pure hypercholesterolemia (3) Paroxysmal atrial fibrillation Assessment/Plan: -s/p MAZE procedure -in sinus rhythm -hold coumadin -continue metoprolol Code(s): I48.0 - PAROXYSMAL ATRIAL FIBRILLATION (4) Status post aortic valve replacement with bioprosthetic valve Assessment/Plan: -noted Code(s): Z95.3 - PRESENCE OF XENOGENIC HEART VALVE (5) Coronary artery disease Assessment/Plan: -quiescent, even with anemia -continue home regimen -consult cardiology Code(s): I25.10 - ATHSCL HEART DISEASE OF [place] CORONARY ARTERY W/O ANG PCTRS Qualifiers: Coronary Disease-Associated Artery/Lesion type: [place] artery [place] vs. transplanted heart: [place] heart Associated angina: without angina Qualified Code(s): I25.10 - Atherosclerotic heart disease of [place] coronary artery without angina pectoris (6) HTN (hypertension) Assessment/Plan: -well controlled -continue lisinopril and metoprolol Code(s): I10 - ESSENTIAL (PRIMARY) HYPERTENSION (7) Chronic pain Assessment/Plan: -continue oxycodone Code(s): G89.29 - OTHER CHRONIC PAIN
--- NOTE | 2018-01-11 16:01 | EKG ---
Test Reason : Blood Pressure : / mmHG Vent. Rate : 082 BPM Atrial Rate : 082 BPM P-R Int : 244 ms QRS Dur : 124 ms QT Int : 398 ms P-R-T Axes : 036 -17 089 degrees QTc Int : 464 ms SINUS RHYTHM WITH 1ST DEGREE A-V BLOCK NON-SPECIFIC INTRA-VENTRICULAR CONDUCTION DELAY NONSPECIFIC ST AND T WAVE ABNORMALITY ABNORMAL ECG WHEN COMPARED WITH ECG OF 28-JAN-2013 12:48, PREMATURE ATRIAL COMPLEXES ARE NO LONGER PRESENT UT INTERVAL HAS INCREASED INVERTED T WAVES HAVE REPLACED NONSPECIFIC T WAVE ABNORMALITY IN LATERAL LEADS Confirmed by LUH CHOWDHURY MD ([id number]) on 01/11/2018 4:01:13 PM Referred By: Confirmed By:LUH CHOWDHURY MD
[2018-01-11 17:03] VITALS: BMI 45.0
[2018-01-11 17:26] LABS: LDH 238 U/L (87-241)
--- NOTE | 2018-01-11 17:38 | CON.CARD ---
Consult Consult Specialty:: Cardiology Referred by:: Myles Liao MD Reason for Consultation:: Afib, bioAVR - History of Present Illness Chief Complaint: Fatigue, symptomatic anemia History of Present Illness: 67-year-old morbidly obese male with known history of aortic valve disease critical aortic stenosis post aortic valve replacement October 21, 2014 ( MAGNA bovine pericardial Bio-prosthesis) echocardiography performed November 05, 2015 , coronary artery disease single vessel obstructive coronary artery disease on coronary angiography October 20, 2014 angina pectoris, diastolic left ventricular dysfunction with class 0-I [place] Heart [employer] classification left ventricular failure, paroxysmal atrial fibrillation post Cryo-MAZE procedure ( October 21, 2014) on chronic anticoagulation therapy with Coumadin [id number] score of 2, mitral valve regurgitation of no clinical significance on echocardiography performed November 05, 2015, tricuspid valve regurgitation mild in severity with no evidence of pulmonary hypertension on echocardiography performed November 05, 2015, hypertensive cardiovascular disease, hypercholesterolemia, abnormal hemoglobin A1C, obstructive sleep apnea, gastro- esophageal reflux disease, degenerative joint disease post total left hip replacement surgery, 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 Since the above evaluation, patient was referred from clinic for symptomatic anemia Hgb 6.3. The patient reports that he recently has been feeling more fatigued, pale and easily winded during physical therapy. He denies RIVERA, dizziness, chest pain, palpitations, abdominal pain, hematochezia, melena or hematuria. He endorses a recent endoscopy where they found an ulcer, but he had taken lovenox that day and so it was no biopsied. - History Source History Provided By: Patient Limitations to Obtaining History: No Limitations - Past Medical History Cardio/Vascular: Yes: AFIB, Aortic Stenosis, CAD - Past Surgical History Past Surgical History: Yes: Valve Replacement - Alcohol/Substance Use Hx Alcohol Use: No - Smoking History Smoking history: Former smoker Have you smoked in the past 12 months: No If you are a former smoker, when did you quit?: 1993 Home Medications - Allergies Allergies/Adverse Reactions: Allergies Allergy/AdvReac Type Severity Reaction Status Date / Time acetaminophen AdvReac jittery Verified 08/01/17 15:54 WOOD MOLD Allergy ITCHING, Uncoded 08/01/17 15:12 BLISTERING - Home Medications Home Medications: Ambulatory Orders Albuterol Sulfate [Proair Hfa -] 1 - 2 inh PO QID PRN 08/20/12 Lisinopril [Prinivil] 5 mg PO DAILY 08/20/12 Escitalopram Oxalate [Lexapro -] 20 mg PO HS 08/18/13 Rosuvastatin Calcium [Crestor] 20 mg PO HS 08/17/15 Aspirin [ASA -] 81 mg PO DAILY 04/27/17 Clonazepam [Klonopin] 1 mg PO DAILY 04/27/17 Metoprolol Tartrate 50 mg PO BID 08/01/17 Omeprazole 20 mg PO DAILY 08/01/17 Oxycodone HCl 10 mg PO ASDIR PRN 08/22/17 Gabapentin [Neurontin -] 300 mg PO BID #60 capsule 08/25/17 Warfarin Na [Coumadin Protocol] 1 each PO ASDIR 01/11/18 Review of Systems - Review of Systems Constitutional: reports: Lethargy, Weakness Respiratory: reports: SOB on Exertion Vital Signs: Vital Signs Temperature 98.5 F 01/11/18 16:22 Pulse Rate 76 01/11/18 16:22 Respiratory Rate 20 01/11/18 16:22 Blood Pressure 146/76 01/11/18 16:22 O2 Sat by Pulse Oximetry (%) 97 01/11/18 16:22 Constitutional: Yes: No Distress, Calm Neck: Yes: Supple Respiratory: Yes: Regular, CTA Bilaterally Gastrointestinal: Yes: Soft, Hypoactive Bowel Sounds Cardiovascular: Yes: Regular Rate and Rhythm JVD: No Carotid Bruit: No Heart Sounds: Yes: S1, S2 Murmur: Yes: Systolic Murmur, Grade 1 Edema: Yes Edema: LLE: 1+, RLE: 1+ - Other Data Labs, Other Data: CBC, BMP 01/11/18 13:45 01/11/18 13:45 INR, PTT INR 2.60 (0.82-1.09) H D 01/11/18 13:45 Imaging - Results Chest X-ray: Report Reviewed (Cardiomegaly, mild vascular congestion) EKG: Report Reviewed (NSR @ 82 1st deg AVB IVCD) Problem List - Problems (1) Symptomatic anemia Code(s): D64.9 - ANEMIA, UNSPECIFIED (2) Chronic anticoagulation Code(s): 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 transplanted heart: [place] heart Associated angina: without angina Qualified Code(s): I25.10 - Atherosclerotic heart disease of [place] coronary artery without angina pectoris (4) Diastolic dysfunction Code(s): I51.9 - HEART DISEASE, UNSPECIFIED (5) Hyperlipidemia Code(s): E78.5 - HYPERLIPIDEMIA, UNSPECIFIED Qualifiers: Hyperlipidemia type: pure hypercholesterolemia Qualified Code(s): E78.00 - Pure hypercholesterolemia, unspecified; E78.0 - Pure hypercholesterolemia (6) Hypertensive cardiomyopathy Code(s): I11.9 - HYPERTENSIVE HEART DISEASE WITHOUT HEART FAILURE; I43 - CARDIOMYOPATHY IN DISEASES CLASSIFIED ELSEWHERE Qualifiers: Heart failure presence: without heart failure Qualified Code(s): I11.9 - Hypertensive heart disease without heart failure; I43 - Cardiomyopathy in diseases classified elsewhere; I43 - Cardiomyopathy in diseases classified elsewhere; I43 - Cardiomyopathy in diseases classified elsewhere; I43 - Cardiomyopathy in diseases classified elsewhere (7) Paroxysmal atrial fibrillation Code(s): I48.0 - PAROXYSMAL ATRIAL FIBRILLATION (8) Status post ablation of atrial fibrillation Code(s): Z98.890 - OTHER SPECIFIED POSTPROCEDURAL STATES; Z86.79 - PERSONAL HISTORY OF OTHER DISEASES OF THE CIRCULATORY SYSTEM (9) Status post aortic valve replacement with bioprosthetic valve Code(s): Z95.3 - PRESENCE OF XENOGENIC HEART VALVE Assessment/Plan Echocardiography performed November 05, 2015 revealed overall preserved left ventricular systolic function with concentric left ventricular hypertrophy, left atrial dilatation measuring 4.7 cm, mitral annular calcification, Bio- prosthetic aortic valve with acceptable trans-valvular gradient, mild mitral and tricuspid valve regurgitation. Cardiac catheterization coronary angiography performed October 20, 2014 revealed single vessel obstructive coronary artery disease (obstructive LAD-D2 ostial 80 % lesion) with mild elevation of pulmonary artery systolic pressure (PA pressure of 36 over 15 mmHg). Assessment: 1. Symptomatic microcytic anemia r/o GI source 2. Aortic valve disease aortic valve stenosis critical in severity post aortic valve replacement (MAGNA bovine pericardial Bio-prosthesis). 3. Coronary artery disease single vessel obstructive coronary artery disease angina pectoris stable. 4. Diastolic left ventricular dysfunction with chronic class 0-I [place] Heart Association classification left ventricular failure, compensated/ euvolemic. 5. Paroxysmal atrial fibrillation currently in sinus rhythm post Cryo-MAZE procedure on chronic anticoagulation therapy with Coumadin [id number] score of 3 and therapeutic INR 6. Mitral valve regurgitation of no clinical significance. 7. Tricuspid valve regurgitation mild in severity with no evidence of pulmonary hypertension on echocardiography performed November 05, 2015. 8. Hypertensive cardiovascular disease, at goal. 9. Hypercholesterolemia. 10. Abnormal hemoglobin A1C. 11. History of obstructive sleep apnea. 12. History of gastro-esophageal reflux disease. 13. History of degenerative joint disease post total left hip replacement. 14. History of clinical depression. PLAN: 1. Hold ASA and coumadin pending hemostasis 2. Continue Lopressor 50 bid, lisinopril 5 qd, Lasix 20 qod, Crestor 10 qd, Pepcid 20 bid 3. Monitor Hgb post-transfusion and transfuse as needed 4. Patient may proceed with endoscopy from CV-standpoint without further testing 5. Patient was advised antibiotic prophylaxis as per the [place] [employer] guidelines. 6. Echocardiography for evaluation of left ventricular systolic function and the above-noted aortic valve prosthesis 7. Thank you for consultative opportunity
[2018-01-11] MEDS ORDERED: PT OWN MED DRAWER 7, Y5N ONE (20:07)
[2018-01-11] MEDS: oxyCODONE HCL 5 MG TABLET PO PRN (20:10)
[2018-01-11] MEDS: METOPROLOL TARTRATE 50 MG TABLET (FP) PO SCH (21:36)
[2018-01-11] MEDS: ESCITALOPRAM OXALATE 20 MG TABLET (FP) PO SCH (21:36)
[2018-01-11] MEDS: ROSUVASTATIN CA 20 MG TABLET (FP) PO SCH (21:36)
[2018-01-11] MEDS: GABAPENTIN 300 MG CAPSULE (FP) PO SCH (21:36)
[2018-01-11] MEDS ORDERED: clonazePAM 0.5 MG TABLET PO ONE (22:00)
--- NOTE | 2018-01-11 23:32 | CONSULT ---
Consult - text type - Consultation Consultation Note: The patient is a 67M who was sent in from outpatient office for blood transfusion. Hgb at clinic was 6.2. The patient reports that he recently has been feeling more fatigued, and easily winded during physical therapy. He dnies any active bleeding per rectum. He reports having had colonoscopy/EGD around June this year and had removalof polyp.He reports h/o left knee replacement in September this year Allergies/Adverse Reactions: Allergies Allergy/AdvReac Type Severity Reaction Status Date / Time acetaminophen AdvReac jittery Verified 08/01/17 15:54 WOOD MOLD Allergy ITCHING, Uncoded 08/01/17 15:12 BLISTERING Home Medications: Ambulatory Orders Albuterol Sulfate [Proair Hfa -] 1 - 2 inh PO QID PRN 08/20/12 Lisinopril [Prinivil] 5 mg PO DAILY 08/20/12 Escitalopram Oxalate [Lexapro -] 20 mg PO HS 08/18/13 Rosuvastatin Calcium [Crestor] 20 mg PO HS 08/17/15 Aspirin [ASA -] 81 mg PO DAILY 04/27/17 Clonazepam [Klonopin] 1 mg PO PRN 04/27/17 Metoprolol Tartrate 50 mg PO BID 08/01/17 Omeprazole 20 mg PO DAILY 08/01/17 Oxycodone HCl 10 mg PO ASDIR PRN 08/22/17 Enoxaparin Sodium [Lovenox] 120 mg SQ BID #20 ml 08/24/17 Enoxaparin [Lovenox -] 120 mg SQ BID #20 disp.syrin 08/24/17 Oxycodone HCl 10 mg PO TID #60 tablet MDD 3 08/24/17 Gabapentin [Neurontin -] 300 mg PO BID #60 capsule 08/25/17 PMH Cardiac Disorders: Yes (A FIB, MVP) GI Disorders: Yes (HIATAL HERNIA, NERD, HERMORRHOIDS, DIVERTICULOSIS) Disorders: Yes (enlarged prostate) HTN: Yes - Surgical History Cardiac Surgery: Yes (BOVINE AVR CARD CATH TIMES TWO-) Orthopedic Surgery: Yes (VIDHYA ARTHOSCOPY KNEE, RIGHT CARPAL TUNNEL, LEft TKR) - Suicide/Smoking/Psychosocial Hx Smoking History: Former smoker - Vital Signs Last Vital Signs Temp Pulse Resp BP Pulse Ox 97.5 F L 72 20 155/66 96 01/11/18 12:49 01/11/18 12:49 01/11/18 12:49 01/11/18 12:49 01/11/18 12:49 Neck: Supple Cor: RSR, No murmurs, No gallops Lungs: Clear to P&A Abd: Soft, Normal bowel sounds, No organomegaly Ext:No significant edema Abnormal Lab Results 01/11/18 01/11/18 01/11/18 13:00 13:45 13:45 RBC 3.62 L Hgb 6.3 L* Hct 22.0 L D MCV 60.6 L MCH 17.4 L D MCHC 28.6 L RDW 20.7 H PT with INR INR BUN 22 H Random Glucose 112 H Ferritin Serum Folate Crossmatch See Detail 01/11/18 01/11/18 01/11/18 13:45 16:00 16:00 RBC Hgb Hct MCV MCH MCHC RDW PT with INR 29.40 H* INR 2.60 H D BUN Random Glucose Ferritin 7.1 L Serum Folate 22 H Crossmatch A/P 67 y/o patient presenting with exertinal dyspnea, severe anmia, micocytic 6.2 and low ferrtitin IRon deficiency anemia -? chronic gi bleed. Patient on coumadin for afib. Ferritin 7 low B12/folate normal Getting PRBC transfusion will dose IV iron Will need GI consultation--h/o colonoscopy, polypectomy and EGD 6 months ago Check ESR/CRP/protein studoes
[2018-01-12 07:22] LABS: BASO % 1.4 % (0-2.0); EOS % 3.1 % (0-4.5); HEMATOCRIT 23.5 % (35.4-49); HEMOGLOBIN 7.1 GM/dL (11.7-16.9); MCHC 30.2 g/dl (32.0-35.9); MEAN PLT VOLUME 8.5 fl (7.5-11.1); MONO % 11.2 % (3.8-10.2); NEUT % 62.3 % (42.8-82.8); PLATELET COUNT 264 K/MM3 (134-434); RBC 3.73 M/mm3 (4.00-5.60); RDW 23.3 % (11.9-15.9); WHITE BLOOD COUNT 7.3 K/mm3 (4.0-10.0)
[2018-01-12 07:30] LABS: ALBUMIN 3.2 g/dl (3.4-5.0); ANION GAP 6 (8-16); BLOOD UREA NITROGEN 14 mg/dL (7-18); CALCIUM 8.1 mg/dL (8.5-10.1); CHLORIDE 110 mmol/L (98-107); CO2 29 mmol/L (21-32); GLUCOSE,RANDOM 94 mg/dL (74-106); MAGNESIUM 2.5 mg/dL (1.8-2.4); PHOSPHOROUS 3.3 mg/dL (2.5-4.9); POTASSIUM 4.6 mmol/L (3.5-5.1); SGOT/AST 15 U/L (15-37); SGPT/ALT 18 U/L (12-78); SODIUM 145 mmol/L (136-145)
[2018-01-12 07:31] LABS: ALK PHOS 81 U/L (45-117); BILIRUBIN,TOTAL 0.9 mg/dL (0.2-1.0); TOT PROT 6.2 g/dl (6.4-8.2)
[2018-01-12] MEDS ORDERED: LORATADINE 10 MG TABLET PO SCH (10:00)
[2018-01-12] MEDS: METOPROLOL TARTRATE 50 MG TABLET (FP) PO SCH ×2 (10:30→21:46)
[2018-01-12] MEDS: clonazePAM 0.5 MG TABLET PO SCH (10:30)
[2018-01-12] MEDS: GABAPENTIN 300 MG CAPSULE (FP) PO SCH ×2 (10:30→21:47)
[2018-01-12] MEDS: PANTOPRAZOLE 40 MG TABLET (FP) PO SCH (10:30)
[2018-01-12] MEDS: LISINOPRIL 5 MG TABLET (FP) PO SCH (10:30)
[2018-01-12 10:54] LABS: INR 2.08 (0.82-1.09); PROTHROMBIN TIME (PATIENT) 23.5 SEC (9.7-13.0)
[2018-01-12 11:20] LABS: ANISOCYTOSIS 2+; MACROCYTOSIS 0; PLATELET ESTIMATE NORMAL
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
[2018-01-12] MEDS: oxyCODONE HCL 5 MG TABLET PO PRN ×2 (12:54→20:21)
--- NOTE | 2018-01-12 13:13 | PN ---
Progress Note, Physician History of Present Illness: GI input noted, He had an EGD and colonoscopy on 04/28/17 when GERD with a small esophageal ulceration was found for which he is taking Pantoprazole. Colonoscopy led to the removal of a small hyperplastic rectal polyp. Mild diverticulosis was found universally. Dyspnea on exertion improved post transfusion, denies hematochezia or melena. - Current Medication List Current Medications: Active Medications Clonazepam (Klonopin -) 1 mg PO DAILY [facility] Last Admin: 01/12/18 10:30 Dose: 1 mg Escitalopram Oxalate (Lexapro -) 20 mg PO [facility] Last Admin: 01/11/18 21:36 Dose: 20 mg Gabapentin (Neurontin -) 300 mg PO BID [facility] Last Admin: 01/12/18 10:30 Dose: 300 mg Iron Sucrose 300 mg/ Sodium (Chloride) 250 mls @ 250 mls/hr IVPB ONCE ONE Stop: 01/12/18 13:59 Lisinopril (Prinivil) 5 mg PO DAILY [facility] Last Admin: 01/12/18 10:30 Dose: 5 mg Metoprolol Tartrate (Lopressor -) 50 mg PO BID [facility] Last Admin: 01/12/18 10:30 Dose: 50 mg Ondansetron HCl (Zofran Injection) 4 mg IVPUSH Q6H PRN PRN Reason: NAUSEA Oxycodone HCl (Roxicodone -) 10 mg PO Q4H PRN PRN Reason: PAIN LEVEL 6-10 Last Admin: 01/12/18 12:54 Dose: 10 mg Pantoprazole Sodium (Protonix -) 40 mg PO DAILY [facility] Last Admin: 01/12/18 10:30 Dose: 40 mg Rosuvastatin Calcium (Crestor -) 20 mg PO [facility] Last Admin: 01/11/18 21:36 Dose: 20 mg - Objective Vital Signs: Vital Signs Temperature 98.1 F 01/12/18 05:29 Pulse Rate 82 01/12/18 05:29 Respiratory Rate 20 01/12/18 05:29 Blood Pressure 137/73 01/12/18 05:29 O2 Sat by Pulse Oximetry (%) 97 01/11/18 20:19 Constitutional: Yes: No Distress, Calm Neck: Yes: Supple Cardiovascular: Yes: Regular Rate and Rhythm Respiratory: Yes: Regular, Diminished Gastrointestinal: Yes: Soft, Abdomen, Obese, Hypoactive Bowel Sounds Edema: Yes Edema: LLE: 1+, RLE: 1+ Labs: CBC, BMP 01/12/18 06:30 01/12/18 06:30 INR, PTT INR 2.08 (0.82-1.09) H 01/12/18 10:25 Problem List - Problems (1) Symptomatic anemia Code(s): D64.9 - ANEMIA, UNSPECIFIED (2) Chronic anticoagulation Code(s): Z79.01 - PERSONAL INSURANCE ADVISOR (CURRENT) USE OF ANTICOAGULANTS (3) Coronary artery disease Code(s): I25.10 - ATHSCL HEART DISEASE OF [place] CORONARY ARTERY W/O ANG PCTRS Qualifiers: Coronary Disease-Associated Artery/Lesion type: [place] artery [place] vs. transplanted heart: [place] heart Associated angina: without angina Qualified Code(s): I25.10 - Atherosclerotic heart disease of [place] coronary artery without angina pectoris (4) Diastolic dysfunction Code(s): I51.9 - HEART DISEASE, UNSPECIFIED (5) Hyperlipidemia Code(s): E78.5 - HYPERLIPIDEMIA, UNSPECIFIED Qualifiers: Hyperlipidemia type: pure hypercholesterolemia Qualified Code(s): E78.00 - Pure hypercholesterolemia, unspecified; E78.0 - Pure hypercholesterolemia (6) Hypertensive cardiomyopathy Code(s): I11.9 - HYPERTENSIVE HEART DISEASE WITHOUT HEART FAILURE; I43 - CARDIOMYOPATHY IN DISEASES CLASSIFIED ELSEWHERE Qualifiers: Heart failure presence: without heart failure Qualified Code(s): I11.9 - Hypertensive heart disease without heart failure; I43 - Cardiomyopathy in diseases classified elsewhere; I43 - Cardiomyopathy in diseases classified elsewhere; I43 - Cardiomyopathy in diseases classified elsewhere; I43 - Cardiomyopathy in diseases classified elsewhere (7) Paroxysmal atrial fibrillation Code(s): I48.0 - PAROXYSMAL ATRIAL FIBRILLATION (8) Status post ablation of atrial fibrillation Code(s): Z98.890 - OTHER SPECIFIED POSTPROCEDURAL STATES; Z86.79 - PERSONAL HISTORY OF OTHER DISEASES OF THE CIRCULATORY SYSTEM (9) Status post aortic valve replacement with bioprosthetic valve Code(s): Z95.3 - PRESENCE OF XENOGENIC HEART VALVE Assessment/Plan Echocardiography performed November 05, 2015 revealed overall preserved left ventricular systolic function with concentric left ventricular hypertrophy, left atrial dilatation measuring 4.7 cm, mitral annular calcification, Bio- prosthetic aortic valve with acceptable trans-valvular gradient, mild mitral and tricuspid valve regurgitation. Cardiac catheterization coronary angiography performed October 20, 2014 revealed single vessel obstructive coronary artery disease (obstructive LAD-D2 ostial 80 % lesion) with mild elevation of pulmonary artery systolic pressure (PA pressure of 36 over 15 mmHg). Assessment: 1. 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 Aortic valve disease aortic valve stenosis critical in severity post aortic valve replacement (MAGNA bovine pericardial Bio-prosthesis). 3. Coronary artery disease single vessel obstructive coronary artery disease angina pectoris stable. 4. Diastolic left ventricular dysfunction with chronic class 0-I [place] [employer] classification left ventricular failure, compensated/ euvolemic. 5. Paroxysmal atrial fibrillation currently in sinus rhythm post Cryo-MAZE procedure on chronic anticoagulation therapy with Coumadin [id number] score of 3 and therapeutic INR 6. Mitral valve regurgitation of no clinical significance. 7. Tricuspid valve regurgitation mild in severity with no evidence of pulmonary hypertension on echocardiography performed November 05, 2015. 8. Hypertensive cardiovascular disease, at goal. 9. Hypercholesterolemia. 10. Abnormal hemoglobin A1C. 11. History of obstructive sleep apnea. 12. History of gastro-esophageal reflux disease. 13. History of degenerative joint disease post total left hip replacement. 14. History of clinical depression. PLAN: 1. Hold ASA and coumadin pending hemostasis, IV iron, capsule endoscopy is planned 2. Continue Lopressor 50 bid, lisinopril 5 qd, Crestor 20 qd, Protonix 40 qd 3. Monitor Hgb post-transfusion and transfuse as needed 4. Patient was advised antibiotic prophylaxis as per the [place] [employer] guidelines. 5. Echocardiography for evaluation of left ventricular systolic function and the above-noted aortic valve prosthesis as outpatient
[2018-01-12] MEDS ORDERED: IRON SUCROSE INJECTION 300 MG in SODIUM CHLORIDE 235 ML IVPB ONE (15:00)
--- NOTE | 2018-01-12 16:56 | PN ---
Progress Note, Physician Chief Complaint: Mr Lee is without complaint. Says he is feeling much better. Denies cp, sob, n /v. - Current Medication List Current Medications: Active Medications Clonazepam (Klonopin -) 1 mg PO DAILY [facility] Last Admin: 01/12/18 10:30 Dose: 1 mg Escitalopram Oxalate (Lexapro -) 20 mg PO [facility] Last Admin: 01/11/18 21:36 Dose: 20 mg Gabapentin (Neurontin -) 300 mg PO BID [facility] Last Admin: 01/12/18 10:30 Dose: 300 mg Lisinopril (Prinivil) 5 mg PO DAILY [facility] Last Admin: 01/12/18 10:30 Dose: 5 mg Metoprolol Tartrate (Lopressor -) 50 mg PO BID [facility] Last Admin: 01/12/18 10:30 Dose: 50 mg Ondansetron HCl (Zofran Injection) 4 mg IVPUSH Q6H PRN PRN Reason: NAUSEA Oxycodone HCl (Roxicodone -) 10 mg PO Q4H PRN PRN Reason: PAIN LEVEL 6-10 Last Admin: 01/12/18 12:54 Dose: 10 mg Pantoprazole Sodium (Protonix -) 40 mg PO DAILY [facility] Last Admin: 01/12/18 10:30 Dose: 40 mg Rosuvastatin Calcium (Crestor -) 20 mg PO [facility] Last Admin: 01/11/18 21:36 Dose: 20 mg - Objective Vital Signs: Vital Signs Temperature 36.7 C 01/12/18 13:45 Pulse Rate 78 01/12/18 13:45 Respiratory Rate 20 01/12/18 13:45 Blood Pressure 115/65 01/12/18 13:45 O2 Sat by Pulse Oximetry (%) 95 01/12/18 09:00 Constitutional: Yes: Well Nourished, No Distress, Calm Cardiovascular: Yes: Regular Rate and Rhythm. No: Gallop, Murmur, Rub Respiratory: Yes: Regular, CTA Bilaterally. No: Rales, Rhonchi, Wheezes Gastrointestinal: Yes: Normal Bowel Sounds, Soft. No: Distention, Tenderness Extremities: Yes: WNL Edema: No Labs: CBC, BMP 01/12/18 06:30 01/12/18 06:30 INR, PTT INR 2.08 (0.82-1.09) H 01/12/18 10:25 Problem List - Problems (1) Symptomatic anemia Code(s): D64.9 - ANEMIA, UNSPECIFIED (2) Hyperlipidemia Code(s): E78.5 - HYPERLIPIDEMIA, UNSPECIFIED Qualifiers: Hyperlipidemia type: pure hypercholesterolemia Qualified Code(s): E78.00 - Pure hypercholesterolemia, unspecified; E78.0 - Pure hypercholesterolemia (3) Paroxysmal atrial fibrillation Code(s): I48.0 - PAROXYSMAL ATRIAL FIBRILLATION (4) Status post aortic valve replacement with bioprosthetic valve Code(s): Z95.3 - PRESENCE OF XENOGENIC HEART VALVE (5) Coronary artery disease Code(s): I25.10 - ATHSCL HEART DISEASE OF [place] CORONARY ARTERY W/O ANG PCTRS Qualifiers: Coronary Disease-Associated Artery/Lesion type: [place] artery [place] vs. transplanted heart: [place] heart Associated angina: without angina Qualified Code(s): I25.10 - Atherosclerotic heart disease of [place] coronary artery without angina pectoris (6) HTN (hypertension) Code(s): I10 - ESSENTIAL (PRIMARY) HYPERTENSION (7) Chronic pain Code(s): G89.29 - OTHER CHRONIC PAIN Assessment/Plan (1) Symptomatic anemia Assessment/Plan: -patient improved with 2 units but still anemic -concern for duodenal bleed -receive another unit today -receive IV iron -hematology following -recheck cbc in am Code(s): D64.9 - ANEMIA, UNSPECIFIED (2) Hyperlipidemia Assessment/Plan: -continue statin Code(s): E78.5 - HYPERLIPIDEMIA, UNSPECIFIED Qualifiers: Hyperlipidemia type: pure hypercholesterolemia Qualified Code(s): E78.00 - Pure hypercholesterolemia, unspecified; E78.0 - Pure hypercholesterolemia (3) Paroxysmal atrial fibrillation Assessment/Plan: -s/p MAZE procedure -in sinus rhythm -hold coumadin -continue metoprolol Code(s): I48.0 - PAROXYSMAL ATRIAL FIBRILLATION (4) Status post aortic valve replacement with bioprosthetic valve Assessment/Plan: -noted Code(s): Z95.3 - PRESENCE OF XENOGENIC HEART VALVE (5) Coronary artery disease Assessment/Plan: -quiescent, even with anemia -continue home regimen -consult cardiology Code(s): I25.10 - ATHSCL HEART DISEASE OF [place] CORONARY ARTERY W/O ANG PCTRS Qualifiers: Coronary Disease-Associated Artery/Lesion type: [place] artery [place] vs. transplanted heart: [place] heart Associated angina: without angina Qualified Code(s): I25.10 - Atherosclerotic heart disease of [place] coronary artery without angina pectoris (6) HTN (hypertension) Assessment/Plan: -well controlled -continue lisinopril and metoprolol Code(s): I10 - ESSENTIAL (PRIMARY) HYPERTENSION (7) Chronic pain Assessment/Plan: -continue oxycodone Code(s): G89.29 - OTHER CHRONIC PAIN Dispo -plan for d/c tomorrow
[2018-01-12] MEDS ORDERED: clonazePAM 0.5 MG TABLET PO ONE (21:45)
[2018-01-12] MEDS: ROSUVASTATIN CA 20 MG TABLET (FP) PO SCH (21:46)
[2018-01-12] MEDS: ESCITALOPRAM OXALATE 20 MG TABLET (FP) PO SCH (21:47)
[2018-01-12] MEDS ORDERED: DOCUSATE SODIUM 100 MG CAPSULE (FP) PO ONE (22:15)
[2018-01-13] MEDS: oxyCODONE HCL 5 MG TABLET PO PRN ×2 (03:50→11:19)
[2018-01-13 06:07] LABS: SERUM IRON SATURATION 3 % (15-55); TOTAL IRON BINDING CAPACITY 429 ug/dL (250-450); UIBC 417 ug/dL (111-343)
[2018-01-13 07:55] LABS: BASO % 1.5 % (0-2.0); EOS % 3.3 % (0-4.5); HEMATOCRIT 26.9 % (35.4-49); HEMOGLOBIN 8.2 GM/dL (11.7-16.9); LYMPH % 18.1 % (8-40); MCH 20.1 pg (25.7-33.7); MCHC 30.6 g/dl (32.0-35.9); MEAN CELL VOLUME 65.7 fl (80-96); MONO % 10.9 % (3.8-10.2); NEUT % 66.2 % (42.8-82.8); PLATELET COUNT 264 K/MM3 (134-434); RBC 4.09 M/mm3 (4.00-5.60); RDW 24.6 % (11.9-15.9); WHITE BLOOD COUNT 7.6 K/mm3 (4.0-10.0)
[2018-01-13 08:05] LABS: INR 1.88 (0.82-1.09); PROTHROMBIN TIME (PATIENT) 21.3 SEC (9.7-13.0)
[2018-01-13 08:25] LABS: ANION GAP 6 (8-16); BLOOD UREA NITROGEN 12 mg/dL (7-18); CALCIUM 8.3 mg/dL (8.5-10.1); CHLORIDE 104 mmol/L (98-107); CO2 31 mmol/L (21-32); CREATININE 1.1 mg/dL (0.7-1.3); GLUCOSE,RANDOM 91 mg/dL (74-106); MAGNESIUM 2.4 mg/dL (1.8-2.4); PHOSPHOROUS 3.2 mg/dL (2.5-4.9); POTASSIUM 4.3 mmol/L (3.5-5.1); SODIUM 141 mmol/L (136-145)
[2018-01-13] MEDS: GABAPENTIN 300 MG CAPSULE (FP) PO SCH (10:09)
[2018-01-13] MEDS: clonazePAM 0.5 MG TABLET PO SCH (10:09)
[2018-01-13] MEDS: LISINOPRIL 5 MG TABLET (FP) PO SCH (10:09)
[2018-01-13] MEDS: METOPROLOL TARTRATE 50 MG TABLET (FP) PO SCH (10:09)
[2018-01-13] MEDS: PANTOPRAZOLE 40 MG TABLET (FP) PO SCH (10:10)
--- NOTE | 2018-01-13 10:38 | PN ---
Progress Note, Physician History of Present Illness: GI input noted, He had an EGD and colonoscopy on 04/28/17 when GERD with a small esophageal ulceration was found for which he is taking Pantoprazole. Colonoscopy led to the removal of a small hyperplastic rectal polyp. Mild diverticulosis was found universally. Dyspnea on exertion improved post transfusion, Hgb 8.2, denies hematochezia or melena. - Current Medication List Current Medications: Active Medications Clonazepam (Klonopin -) 1 mg PO DAILY [facility] Last Admin: 01/13/18 10:09 Dose: 1 mg Escitalopram Oxalate (Lexapro -) 20 mg PO [facility] Last Admin: 01/12/18 21:47 Dose: 20 mg Gabapentin (Neurontin -) 300 mg PO BID [facility] Last Admin: 01/13/18 10:09 Dose: 300 mg Lisinopril (Prinivil) 5 mg PO DAILY [facility] Last Admin: 01/13/18 10:09 Dose: 5 mg Metoprolol Tartrate (Lopressor -) 50 mg PO BID [facility] Last Admin: 01/13/18 10:09 Dose: 50 mg Ondansetron HCl (Zofran Injection) 4 mg IVPUSH Q6H PRN PRN Reason: NAUSEA Oxycodone HCl (Roxicodone -) 10 mg PO Q4H PRN PRN Reason: PAIN LEVEL 6-10 Last Admin: 01/13/18 03:50 Dose: 10 mg Pantoprazole Sodium (Protonix -) 40 mg PO DAILY [facility] Last Admin: 01/13/18 10:10 Dose: 40 mg Rosuvastatin Calcium (Crestor -) 20 mg PO [facility] Last Admin: 01/12/18 21:46 Dose: 20 mg - Objective Vital Signs: Vital Signs Temperature 97.8 F 01/13/18 05:00 Pulse Rate 77 01/13/18 05:00 Respiratory Rate 20 01/13/18 05:00 Blood Pressure 141/72 01/13/18 05:00 O2 Sat by Pulse Oximetry (%) 95 01/12/18 21:53 Constitutional: Yes: No Distress, Calm Neck: Yes: Supple Cardiovascular: Yes: Regular Rate and Rhythm Respiratory: Yes: Regular, CTA Bilaterally Gastrointestinal: Yes: Normal Bowel Sounds, Soft, Abdomen, Obese Edema: Yes Edema: LLE: Trace, RLE: Trace Labs: CBC, BMP 01/13/18 06:00 01/13/18 06:00 INR, PTT INR 1.88 (0.82-1.09) H 01/13/18 06:00 Problem List - Problems (1) Symptomatic anemia Code(s): D64.9 - ANEMIA, UNSPECIFIED (2) Chronic anticoagulation Code(s): Z79.01 - SHELTER (CURRENT) USE OF ANTICOAGULANTS (3) Coronary artery disease Code(s): I25.10 - ATHSCL HEART DISEASE OF [place] CORONARY ARTERY W/O ANG PCTRS Qualifiers: Coronary Disease-Associated Artery/Lesion type: [place] artery [place] vs. transplanted heart: [place] heart Associated angina: without angina Qualified Code(s): I25.10 - Atherosclerotic heart disease of [place] coronary artery without angina pectoris (4) Diastolic dysfunction Code(s): I51.9 - HEART DISEASE, UNSPECIFIED (5) Hyperlipidemia Code(s): E78.5 - HYPERLIPIDEMIA, UNSPECIFIED Qualifiers: Hyperlipidemia type: pure hypercholesterolemia Qualified Code(s): E78.00 - Pure hypercholesterolemia, unspecified; E78.0 - Pure hypercholesterolemia (6) Hypertensive cardiomyopathy Code(s): I11.9 - HYPERTENSIVE HEART DISEASE WITHOUT HEART FAILURE; I43 - CARDIOMYOPATHY IN DISEASES CLASSIFIED ELSEWHERE Qualifiers: Heart failure presence: without heart failure Qualified Code(s): I11.9 - Hypertensive heart disease without heart failure; I43 - Cardiomyopathy in diseases classified elsewhere; I43 - Cardiomyopathy in diseases classified elsewhere; I43 - Cardiomyopathy in diseases classified elsewhere; I43 - Cardiomyopathy in diseases classified elsewhere (7) Paroxysmal atrial fibrillation Code(s): I48.0 - PAROXYSMAL ATRIAL FIBRILLATION (8) Status post ablation of atrial fibrillation Code(s): Z98.890 - OTHER SPECIFIED POSTPROCEDURAL STATES; Z86.79 - PERSONAL HISTORY OF OTHER DISEASES OF THE CIRCULATORY SYSTEM (9) Status post aortic valve replacement with bioprosthetic valve Code(s): Z95.3 - PRESENCE OF XENOGENIC HEART VALVE Assessment/Plan Echocardiography performed November 05, 2015 revealed overall preserved left ventricular systolic function with concentric left ventricular hypertrophy, left atrial dilatation measuring 4.7 cm, mitral annular calcification, Bio- prosthetic aortic valve with acceptable trans-valvular gradient, mild mitral and tricuspid valve regurgitation. Cardiac catheterization coronary angiography performed October 20, 2014 revealed single vessel obstructive coronary artery disease (obstructive LAD-D2 ostial 80 % lesion) with mild elevation of pulmonary artery systolic pressure (PA pressure of 36 over 15 mmHg). Assessment: 1. 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 Aortic valve disease aortic valve stenosis critical in severity post aortic valve replacement (MAGNA bovine pericardial Bio-prosthesis). 3. Coronary artery disease single vessel obstructive coronary artery disease angina pectoris stable. 4. Diastolic left ventricular dysfunction with chronic class 0-I [place] Heart Association classification left ventricular failure, compensated/ euvolemic. 5. Paroxysmal atrial fibrillation currently in sinus rhythm post Cryo-MAZE procedure on chronic anticoagulation therapy with Coumadin [id number] score of 3 and subtherapeutic INR 6. Mitral valve regurgitation of no clinical significance. 7. Tricuspid valve regurgitation mild in severity with no evidence of pulmonary hypertension on echocardiography performed November 05, 2015. 8. Hypertensive cardiovascular disease, at goal. 9. Hypercholesterolemia. 10. Abnormal hemoglobin A1C. 11. History of obstructive sleep apnea. 12. History of gastro-esophageal reflux disease. 13. History of degenerative joint disease post total left hip replacement. 14. History of clinical depression. PLAN: 1. Hold ASA and coumadin pending hemostasis, IV iron, capsule endoscopy is planned, anticipate resuming coumadin per INR after 1 month of healing without concomitant ASA given stability of CAD 2. Continue Lopressor 50 bid, lisinopril 5 qd, Crestor 20 qd, Protonix 40 qd 3. Monitor Hgb post-transfusion and transfuse as needed 4. Patient was advised antibiotic prophylaxis as per the [place] Heart Association guidelines. 5. Echocardiography for evaluation of left ventricular systolic function and the above-noted aortic valve prosthesis as outpatient 6. Patient may be d/babs home with f/u with Dr. Jim 1-2 weeks
[2018-01-13] MEDS ORDERED: MAGNESIUM HYDROX 2400MG/30ML ORAL SUSPENSION 30 ML CUP PO PRN (10:49)
--- NOTE | 2018-01-13 10:56 | DS ---
Physical Examination Vital Signs: Vital Signs Temperature 97.8 F 01/13/18 05:00 Pulse Rate 77 01/13/18 05:00 Respiratory Rate 20 01/13/18 05:00 Blood Pressure 141/72 01/13/18 05:00 O2 Sat by Pulse Oximetry (%) 95 01/12/18 21:53 Labs: CBC, BMP 01/13/18 06:00 01/13/18 06:00 Discharge Summary Reason For Visit: SECONDARY ANEMIA Current Active Problems Chronic pain (Acute) Colon polyp, hyperplastic (Acute) Diverticulosis (Acute) Fatty (change of) liver, not elsewhere classified (Acute) HTN (hypertension) (Acute) Hiatal hernia with GERD (Acute) Microcytic hypochromic anemia (Acute) Morbid exogenous obesity (Acute) Symptomatic anemia (Acute) Hospital Course: 67-year-old morbidly obese male with known history of aortic valve disease critical aortic stenosis post aortic valve replacement October 21, 2014 ( MAGNA bovine pericardial Bio-prosthesis) echocardiography performed November 05, 2015 , coronary artery disease single vessel obstructive coronary artery disease on coronary angiography October 20, 2014 angina pectoris, diastolic left ventricular dysfunction with class 0-I [place] Heart Association classification left ventricular failure, paroxysmal atrial fibrillation post Cryo-MAZE procedure ( October 21, 2014) on chronic anticoagulation therapy with Coumadin [id number] score of 2, mitral valve regurgitation of no clinical significance on echocardiography performed November 05, 2015, tricuspid valve regurgitation mild in severity with no evidence of pulmonary hypertension on echocardiography performed November 05, 2015, hypertensive cardiovascular disease, hypercholesterolemia, abnormal hemoglobin A1C, obstructive sleep apnea, gastro- esophageal reflux disease, degenerative joint disease post total left hip replacement surgery, 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 Condition: Improved - Instructions Diet, Activity, Other Instructions: As advised Referrals: Jeromy Trejo MD [Primary Care Provider] - 1 Week Tyrese Willingham MD [Staff Physician] - 2 Weeks Kashmir Sharp MD [Staff Physician] - 1 Week Disposition: HOME - Home Medications Comprehensive Discharge Medication List: Ambulatory Orders Albuterol Sulfate [Proair Hfa -] 1 - 2 inh PO QID PRN 08/20/12 Lisinopril [Prinivil] 5 mg PO DAILY 08/20/12 Escitalopram Oxalate [Lexapro -] 20 mg PO HS 08/18/13 Rosuvastatin Calcium [Crestor] 20 mg PO HS 08/17/15 Aspirin [ASA -] 81 mg PO DAILY 04/27/17 Clonazepam [Klonopin] 1 mg PO DAILY 04/27/17 Metoprolol Tartrate 50 mg PO BID 08/01/17 Omeprazole 20 mg PO DAILY 08/01/17 Oxycodone HCl 10 mg PO ASDIR PRN 08/22/17 Gabapentin [Neurontin -] 300 mg PO BID #60 capsule 08/25/17 Warfarin Na [Coumadin Protocol] 1 each PO ASDIR 01/11/18 Ferrous Gluconate [Fergon -] 324 mg PO TIDCM 30 Days #90 tab 01/13/18 Loratadine [Claritin -] 10 mg PO DAILY tablet 01/13/18 Pantoprazole Sodium [Protonix -] 40 mg PO DAILY tablet.ec 01/13/18 oxyCODONE HCL [Roxicodone -] 10 mg PO Q4H PRN 7 Days #30 tablet MDD 4 01/13/18
[2018-01-13] MEDS ORDERED: FERROUS GLUCONATE 324 MG TAB (FP) PO SCH (12:00)
[2018-01-13 14:14] VITALS: BP 141/73; PULSE 83; TEMP 98.1
[2018-01-14 00:07] LABS: FREE KAPPA,SERUM 54.9 mg/L (3.3-19.4)
[2018-01-15 16:33] LABS: TRANSGLUTAMINASE IGA < 2 U/mL (0-3); TRANSGLUTAMINASE IGG 6 U/mL (0-5)
[2018-01-16 14:16] LABS: HGB SOLUBILITY Negative (Negative); Hgb A 98.2 % (96.4-98.8); Hgb C 0 % (0.0); Hgb F 0 % (0.0-2.0); Hgb S 0 % (0.0)
== END 2018-01-13 13:00 | disposition home or self-care (01) | DRG 812 ==
LOC: JER 12:44 → JERBED 14:49 → J7W 15:43
PROVIDERS: ADMIT Internal Medicine; ATTEND Internal Medicine
PROC: 30233N1 Transfusion of Nonautologous Red Blood Cells into Peripheral Vein, Percutaneous Approach (ICD-10-PCS; principal; 2018-01-11)
DX: D64.9 Anemia, unspecified (principal); Z68.42 Body mass index [BMI] 45.0-49.9, adult; E78.5 Hyperlipidemia, unspecified; I48.0 Paroxysmal atrial fibrillation; I25.10 Atherosclerotic heart disease of native coronary artery without angina pectoris; G89.29 Other chronic pain; K76.0 Fatty (change of) liver, not elsewhere classified; K44.9 Diaphragmatic hernia without obstruction or gangrene; K21.9 Gastro-esophageal reflux disease without esophagitis; E66.01 Morbid (severe) obesity due to excess calories; I11.9 Hypertensive heart disease without heart failure; Z95.3 Presence of xenogenic heart valve
CPT/HCPCS: 36415; 36430; 71045-TC-FY; 80048; 80053; 82272; 82378; 82607; 82728; 82746; 82784; 83010; 83021; 83516; 83540; 83550; 83615; 83735; 83883; 84100; 84155; 84156; 84157; 84165; 84466; 85025; 85027; 85044; 85610; 85660; 85730; 86334; 86850; 86900; 86901; 86922; 93005; 93010; 94010; 97116-GP; 97161-GP; 99284-25; J1756; P9038; P9058

== ENCOUNTER 2018-02-09 10:44 | Day surgery (SDC) | payer OTHER ==
[2018-02-09 11:55] LABS: BASO % 0.8 % (0-2.0); EOS % 1.9 % (0-4.5); HEMATOCRIT 31.5 % (35.4-49); LYMPH % 18.4 % (8-40); MCH 22.4 pg (25.7-33.7); MCHC 31.8 g/dl (32.0-35.9); MEAN CELL VOLUME 70.3 fl (80-96); MEAN PLT VOLUME 9.1 fl (7.5-11.1); NEUT % 66.9 % (42.8-82.8); PLATELET COUNT 187 K/MM3 (134-434); RBC 4.48 M/mm3 (4.00-5.60); RDW 31.4 % (11.9-15.9); WHITE BLOOD COUNT 6.3 K/mm3 (4.0-10.0)
[2018-02-09 11:56] LABS: ADD RBC MORPHOLOGY YES
[2018-02-09] MEDS ORDERED: IRON SUCROSE INJECTION 200 MG in SODIUM CHLORIDE 100 ML IVPB ONE (12:00)
[2018-02-09 12:56] LABS: ANISOCYTOSIS 1+
--- NOTE | 2018-02-09 13:40 | HP ---
[facility] - Chief Complaint History Source: Patient - Past Medical History Allergies/Adverse Reactions: Allergies Allergy/AdvReac Type Severity Reaction Status Date / Time acetaminophen AdvReac jittery Verified 08/01/17 15:54 WOOD MOLD Allergy ITCHING, Uncoded 08/01/17 15:12 BLISTERING Cardiovascular: Yes: AFIB (s/p ablation and now in NSR), HTN, Hyperlipdemia, Other (Bovine AVR) Pulmonary: Yes: COPD, Sleep Apnea Gastrointestinal: Yes: Diverticulosis, Gastritis (s/p H pylori ), GERD (with hiatal hernia), Other (hyperplastic rectal polyp) Hepatobiliary: Yes: Other (fatty liver) Renal/: Yes: Renal Calculi Additional Medical History: Morbid obesity - Current Medications Current Medications: Home Medications Medication Instructions Recorded Albuterol Sulfate [Proair Hfa -] 1 - 2 inh PO QID PRN 08/20/12 Lisinopril [Prinivil] 5 mg PO DAILY 08/20/12 Escitalopram Oxalate [Lexapro -] 20 mg PO HS 08/18/13 Rosuvastatin Calcium [Crestor] 20 mg PO HS 08/17/15 Aspirin [ASA -] 81 mg PO DAILY 04/27/17 Clonazepam [Klonopin] 1 mg PO DAILY 04/27/17 Metoprolol Tartrate 50 mg PO BID 08/01/17 Omeprazole 20 mg PO DAILY 08/01/17 Oxycodone HCl 10 mg PO ASDIR PRN 08/22/17 Gabapentin [Neurontin -] 300 mg PO BID #60 capsule 08/25/17 Warfarin Na [Coumadin Protocol] 1 each PO ASDIR 01/11/18 Ferrous Gluconate [Fergon -] 324 mg PO TIDCM 30 Days #90 tab 01/13/18 Loratadine [Claritin -] 10 mg PO DAILY tablet 01/13/18 Pantoprazole Sodium [Protonix -] 40 mg PO DAILY tablet.ec 01/13/18 oxyCODONE HCL [Roxicodone -] 10 mg PO Q4H PRN 7 Days #30 tablet 01/13/18 MDD 4 Satellite Physical Exam - Physical Examination General Appearance: Well Nourished, Alert & Oriented x3 Lung: Clear to auscultation, Normal air movement Heart: Regular rate & rhythm, Normal S1, Normal S2 Abdomen: Soft, No tenderness Extremities: No edema Neurological: Intact Satellite Impression/Plan - Impression/Plan Impression: 67 y/o patient with afib, s/p bio AVR, here for elective iv iron infusion. hgb improving
[2018-02-09 17:18] VITALS: BP 138/78; PULSE 70; TEMP 98.1
== END 2018-02-09 14:00 | disposition home or self-care (01) ==
LOC: JONCNONCHE 10:44 → JONCCHEMO 10:44 → J7W 11:02 → JONCNONCHE 14:00
PROVIDERS: ATTEND Internal Medicine Hematology & Oncology
PROC: 3E033GC Introduction of Other Therapeutic Substance into Peripheral Vein, Percutaneous Approach (ICD-10-PCS; principal; 2018-02-09)
DX: D50.9 Iron deficiency anemia, unspecified (principal)
CPT/HCPCS: 36415; 85025; 86850; 86900; 86901; 96365; J1756

== ENCOUNTER 2023-03-23 12:25 | Emergency (ER) | payer OTHER ==
[2023-03-23 13:08] VITALS: BP 138/79; PULSE 81; RESP 18; TEMP 98.7; BMI 41.0
== END 2023-03-23 14:55 | disposition home or self-care (01) ==
LOC: FER 12:25
DX: M25.561 Pain in right knee (principal); M25.562 Pain in left knee; W01.198A Fall on same level from slipping, tripping and stumbling with subsequent striking against other object, initial encounter
CPT/HCPCS: 70450-TC; 72125-TC; 73562-TC-LT-FY; 73562-TC-RT-FY; 99284-25

== ENCOUNTER 2023-03-25 11:16 | Emergency (ER) | payer OTHER ==
[2023-03-25 11:33] VITALS: BP 135/68; PULSE 69; RESP 18; TEMP 98.4; BMI 41.0
== END 2023-03-25 14:24 | disposition home or self-care (01) ==
LOC: FER 11:16
DX: M25.522 Pain in left elbow (principal); W19.XXXA Unspecified fall, initial encounter
CPT/HCPCS: 73060-TC-LT-FY; 73070-TC-LT-FY; 73090-TC-LT-FY; 99283-25